=== PATIENT | male | born 1960 | race Caucasian/White ===

== ENCOUNTER 2020-03-28 04:24 | Inpatient (IN) | payer OTHER ==
[~2020-03-28] VITALS: Ht 177.8 cm; Wt 120.7 kg
[2020-03-28] MEDS ORDERED: LORazepam 2 MG/ML, 1ML ONE (04:48)
--- NOTE | 2020-03-28 04:56 | NUR ---
PT PLACED ON REGULATORY SPECIALIST AND CONTINUOUS PULSE OX. 98% ON 2L. PT IS PRESCRIBED LISINOPRIL AND CLONODINE AT HOME BUT IS UNSURE OF THE DOSAGES AND WILL CALL HIS LATER TO FIND OUT WHAT THEY ARE. CXR COMPLETE. ATIVAN GIVEN PER EMAR. PT RESTING WITH CALL LIGHT IN REACH.
[2020-03-28] MEDS ORDERED: LORazepam 2 MG/ML, 1ML IVPush ONE (05:00)
[2020-03-28] MEDS ORDERED: NITROGLYCERIN OINT 2%, 1GM TP ONE ×2 (05:18→05:30)
--- NOTE | 2020-03-28 05:20 | NUR ---
INFORMED DR. CASE THAT PATIENT'S BP WAS 155/90. HE STATED TO APPLY 1/2 INCH NITROPASTE. NITROPASTE APPLIED. PT REMAINS ON SOCIAL MEDIA EXECUTIVE WITH CALL LIGHT WITHIN REACH. PT SLEEPING WITH NO CONCERNS AT THIS TIME.
[2020-03-28 05:22] LABS: BASOPHILS # (AUTO) 0.09 x10^3/uL (0-0.1); BASOPHILS % (AUTO) 1 % (0-1); EOSINOPHILS # (AUTO) 0.22 x10^3/uL (0-0.4); EOSINOPHILS % (AUTO) 3 % (1-7); LYMPHOCYTES # (AUTO) 1.87 x10^3/uL (1-3.4); LYMPHOCYTES % (AUTO) 21 % (22-44); MD NO; MEAN CORPUSCULAR HEMOGLOBIN 29.8 pg (27.5-34.5); MEAN CORPUSCULAR HGB CONC 33.2 g/dL (33.2-36.2); MEAN CORPUSCULAR VOLUME 89.8 fL (81-97); MEAN PLATELET VOLUME 8.7 fL (7.4-10.4); MONOCYTES # (AUTO) 0.73 x10^3/uL (0.2-0.8); MONOCYTES % (AUTO) 8 % (2-9); NEUTROPHILS # (AUTO) 6.12 x10^3/uL (1.8-6.8); NEUTROPHILS % (AUTO) 68 % (42-75); PLATELET COUNT 254 x10^3/uL (130-400); RED BLOOD COUNT 4.48 x10^6/uL (4.38-5.82); RED CELL DISTRIBUTION WIDTH 15.1 % (9.4-14.8)
[2020-03-28 05:25] LABS: INTERNATIONAL NORMALIZED RATIO 1.02 (0.93-1.1); PROTHROMBIN TIME 10.8 Seconds (9.6-11.5)
[2020-03-28 05:28] LABS: ALANINE AMINOTRANSFERASE 38 U/L (12-78); ALBUMIN 3.4 g/dL (3.4-5.0); ANION GAP 7 mmol/L (5-15); CALCIUM 8.2 mg/dL (8.5-10.1); CHLORIDE 106 mmol/L (98-107); CREATININE 1.89 mg/dL (0.7-1.3)
[2020-03-28 05:32] LABS: ALKALINE PHOSPHATASE 72 U/L (45-117); BILIRUBIN,TOTAL 0.5 mg/dL (0.2-1.0); TOTAL PROTEIN 7.5 g/dL (6.4-8.2); TROPONIN I 0.055 ng/mL (0.000-0.045)
[2020-03-28] MEDS ORDERED: CLON0.1T22 PO (05:58)
[2020-03-28] MEDS ORDERED: LISI2.5T PO (05:58)
--- NOTE | 2020-03-28 06:15 | NUR ---
PT SLEEPING AT THIS TIME. VSS. CALL LIGHT WITHIN REACH.
--- NOTE | 2020-03-28 06:55 | NUR ---
REPORT GIVEN TO RAN TRIPLETT
--- NOTE | 2020-03-28 06:58 | NUR ---
REPORT FROM UZIEL HE. PT SITTING UP IN BED, SLEEPING. NAD NOTED AT THIS TIME. PT ON MONITOR. AWAITING ADMIT.
--- NOTE | 2020-03-28 07:24 | NUR ---
FIRST ATTEMPT TO CALL REPORT.
--- NOTE | 2020-03-28 07:45 | NUR ---
PT AWAKE, SITTING UP IN BED, USING CELL PHONE. PT AWARE OF PLAN TO TRANSPORT TO ADMISSION ROOM. NAD NOTED AT THIS TIME. PT REPORTS HE FEELS HE IS BREATHING BETTER NOW THAN BEFORE.
[2020-03-28 08:52] VITALS: BP 152/82
[2020-03-28] MEDS ORDERED: ONDANSETRON ODT 4 MG PO PRN (10:30)
[2020-03-28] MEDS ORDERED: POLYETHYLENE GLYCOL 17 GM PACKET PO PRN (10:30)
[2020-03-28] MEDS ORDERED: DOCUSATE 100 MG CAPSULE PO PRN (10:30)
[2020-03-28] MEDS ORDERED: ACETAMINOPHEN 325 MG TABLET PO PRN (10:30)
[2020-03-28] MEDS ORDERED: ONDANSETRON 2MG/ML, 2ML IVPush PRN (10:30)
[2020-03-28] MEDS ORDERED: BISACODYL 10 MG SUPP PR PRN (10:30)
[2020-03-28] MEDS ORDERED: hydrALAzine 20 MG/ML, 1ML IVPush PRN (10:30)
[2020-03-28] MEDS ORDERED: LABETALOL 5MG/ML, 20ML IVPush PRN (10:30)
[2020-03-28] MEDS: PLEASE ENTER ALLERGIES MC SCH ×3 (10:42→20:53)
[2020-03-28 11:52] VITALS: BP 159/94
[2020-03-28] MEDS: HEPARIN 5,000 UNITS/ML, 1ML SQ SCH ×2 (11:55→20:54)
[2020-03-28] MEDS: ASPIRIN 325 MG TABLET EC PO SCH (11:55)
[2020-03-28] MEDS: METOPROLOL TARTRATE 50 MG TAB PO SCH ×2 (11:55→20:54)
[2020-03-28] MEDS: AMLODIPINE 10 MG TAB PO SCH (11:55)
[2020-03-28] MEDS: CLOPIDOGREL 75 MG TABLET PO SCH (11:55)
[2020-03-28] MEDS: NICOTINE 21 MG/24 HR PATCH.TD24 TD SCH (11:56)
[2020-03-28] MEDS ORDERED: POTASSIUM CHLORIDE 20 MEQ TAB.ER.PRT PO SCH (17:00)
[2020-03-28] MEDS: FUROSEMIDE 40 MG/4 ML IV SCH (17:10)
[2020-03-28 18:58] VITALS: BP 162/96
[2020-03-28] MEDS: OMEGA-3/FISH OIL CAPSULE PO SCH (20:54)
[2020-03-28] MEDS: ATORVASTATIN 20 MG TABLET PO SCH (20:54)
[2020-03-28] MEDS ORDERED: TEMAZEPAM 15 MG CAPSULE ONE (22:05)
[2020-03-28 22:07] LABS: MICROSCOPIC NOT IND
[2020-03-29 02:00] VITALS: BP 175/95
[2020-03-29] MEDS: HEPARIN 5,000 UNITS/ML, 1ML SQ SCH ×3 (02:23→17:19)
[2020-03-29 04:54] LABS: BASOPHILS % (AUTO) 0 % (0-1); EOSINOPHILS # (AUTO) 0.17 x10^3/uL (0-0.4); EOSINOPHILS % (AUTO) 2 % (1-7); LYMPHOCYTES # (AUTO) 1.71 x10^3/uL (1-3.4); LYMPHOCYTES % (AUTO) 16 % (22-44); MD NO; MEAN CORPUSCULAR HEMOGLOBIN 29.1 pg (27.5-34.5); MEAN CORPUSCULAR HGB CONC 32.7 g/dL (33.2-36.2); MEAN CORPUSCULAR VOLUME 88.9 fL (81-97); MONOCYTES # (AUTO) 0.58 x10^3/uL (0.2-0.8); MONOCYTES % (AUTO) 6 % (2-9); NEUTROPHILS % (AUTO) 77 % (42-75); PLATELET COUNT 282 x10^3/uL (130-400); RED BLOOD COUNT 4.86 x10^6/uL (4.38-5.82); RED CELL DISTRIBUTION WIDTH 15.2 % (9.4-14.8)
[2020-03-29 05:03] LABS: ANION GAP 6 mmol/L (5-15); CALCIUM 8.6 mg/dL (8.5-10.1); CHLORIDE 104 mmol/L (98-107)
[2020-03-29 05:04] LABS: CHOL/HDL RATIO 5.1; CHOLESTEROL, TOTAL 184 mg/dL (140-239); CREATININE 1.54 mg/dL (0.7-1.3); HDL CHOL % 20 % (26-37); HDL CHOLESTEROL (DIRECT) 36 mg/dL (40-60); LDL CHOLESTEROL,CALCULATED 121 mg/dL (54-169); LDL/HDL RATIO 3.4 (0.5-3.0); TRIGLYCERIDES 135 mg/dL (50-200); VLDL CHOLESTEROL 27 mg/dL (0-25)
[2020-03-29] MEDS: METOPROLOL TARTRATE 50 MG TAB PO SCH ×2 (05:15→17:19)
[2020-03-29] MEDS: ASPIRIN 325 MG TABLET EC PO SCH (05:16)
[2020-03-29 08:38] VITALS: BP 176/96
[2020-03-29] MEDS: POTASSIUM CHLORIDE 20 MEQ TAB.ER.PRT PO SCH ×2 (08:41→17:19)
[2020-03-29] MEDS: OMEGA-3/FISH OIL CAPSULE PO SCH ×2 (08:42→21:39)
[2020-03-29] MEDS: AMLODIPINE 10 MG TAB PO SCH (08:42)
[2020-03-29] MEDS: LISINOPRIL 40 MG TABLET PO SCH (08:42)
[2020-03-29] MEDS: FUROSEMIDE 40 MG/4 ML IV SCH ×2 (08:42→17:19)
[2020-03-29] MEDS: CLOPIDOGREL 75 MG TABLET PO SCH (08:42)
[2020-03-29] MEDS: NICOTINE 21 MG/24 HR PATCH.TD24 TD SCH (08:43)
[2020-03-29 12:27] VITALS: BP 174/95
[2020-03-29 18:45] VITALS: BP 166/95
[2020-03-29] MEDS ORDERED: TEMAZEPAM 30 MG CAPSULE PO ONE (21:00)
[2020-03-29] MEDS ORDERED: TEMAZEPAM 15 MG CAPSULE ONE (21:13)
[2020-03-29] MEDS: ATORVASTATIN 20 MG TABLET PO SCH (21:39)
[2020-03-29] MEDS ORDERED: TEMAZEPAM 30 MG CAPSULE PO PRN (22:00)
[2020-03-30] MEDS: HEPARIN 5,000 UNITS/ML, 1ML SQ SCH ×3 (00:49→10:26)
[2020-03-30 01:32] VITALS: BP 154/88
[2020-03-30 06:01] LABS: ANION GAP 8 mmol/L (5-15); CALCIUM 8.7 mg/dL (8.5-10.1); CHLORIDE 107 mmol/L (98-107)
[2020-03-30 06:04] LABS: CREATININE 1.64 mg/dL (0.7-1.3)
[2020-03-30 06:22] VITALS: BP 171/92
[2020-03-30] MEDS: FUROSEMIDE 40 MG/4 ML IV SCH (06:25)
[2020-03-30] MEDS: ASPIRIN 325 MG TABLET EC PO SCH (06:25)
[2020-03-30] MEDS: METOPROLOL TARTRATE 50 MG TAB PO SCH (06:25)
[2020-03-30] MEDS: POTASSIUM CHLORIDE 20 MEQ TAB.ER.PRT PO SCH (08:15)
[2020-03-30] MEDS: LISINOPRIL 40 MG TABLET PO SCH (08:15)
[2020-03-30] MEDS: OMEGA-3/FISH OIL CAPSULE PO SCH (08:15)
[2020-03-30] MEDS: AMLODIPINE 10 MG TAB PO SCH (08:16)
[2020-03-30] MEDS: CLOPIDOGREL 75 MG TABLET PO SCH (08:16)
[2020-03-30] MEDS ORDERED: FURO40TA6 PO (09:01)
[2020-03-30] MEDS ORDERED: VARE0.5T PO (09:01)
[2020-03-30] MEDS ORDERED: AMLO10TA8 PO (09:01)
[2020-03-30] MEDS ORDERED: CLOP75TA PO (09:01)
[2020-03-30] MEDS ORDERED: POTA20TA6 PO (09:01)
[2020-03-30] MEDS ORDERED: ATOR20TA37 PO (09:01)
[2020-03-30] MEDS ORDERED: LISI40TA PO (09:01)
[2020-03-30] MEDS ORDERED: HYDR-3342 PO (09:01)
[2020-03-30] MEDS: NICOTINE 21 MG/24 HR PATCH.TD24 TD SCH (10:26)
[2020-03-30] MEDS ORDERED: METO50TA82 PO (12:03)
== END 2020-03-30 12:31 | disposition home or self-care (01) | DRG 280 ==
LOC: ED 05:24 → EDIP 06:41 → 4NW 08:17
PROVIDERS: ADMIT Internal Medicine; ATTEND Hospitalist
DX: I21.A1 Myocardial infarction type 2 (principal); I50.33 Acute on chronic diastolic (congestive) heart failure; J96.01 Acute respiratory failure with hypoxia; N17.9 Acute kidney failure, unspecified; I13.0 Hypertensive heart and chronic kidney disease with heart failure and stage 1 through stage 4 chronic kidney disease, or unspecified chronic kidney disease; E66.9 Obesity, unspecified; E78.5 Hyperlipidemia, unspecified; F17.210 Nicotine dependence, cigarettes, uncomplicated; E87.6 Hypokalemia; T50.1X5A Adverse effect of loop [high-ceiling] diuretics, initial encounter; F41.9 Anxiety disorder, unspecified; I08.1 Rheumatic disorders of both mitral and tricuspid valves; I25.10 Atherosclerotic heart disease of native coronary artery without angina pectoris; N18.9 Chronic kidney disease, unspecified; Z95.5 Presence of coronary angioplasty implant and graft; Z91.19 Patient's noncompliance with other medical treatment and regimen; Z82.49 Family history of ischemic heart disease and other diseases of the circulatory system; Z80.1 Family history of malignant neoplasm of trachea, bronchus and lung; Y92.89 Other specified places as the place of occurrence of the external cause; I25.2 Old myocardial infarction; Z20.828 Contact with and (suspected) exposure to other viral communicable diseases
CPT/HCPCS: 36415; 71045; 80048; 80053; 80061; 81003; 83036; 83735; 83880; 84145; 84443; 84484; 85025; 85610; 85730; 93005; 93308; 96374; 99285; G0378; J1644; J1940; J0360; J2060